=== PATIENT | male | born 1995 | race Caucasian/White ===

== ENCOUNTER 2017-01-15 07:09 | Day surgery (SDC) | payer OTHER ==
[~2017-01-15] VITALS: Ht 177.8 cm; Wt 56.2 kg
[2017-01-15 07:27] VITALS: BP 134/74
[2017-01-15 10:36] VITALS: BP 116/62
== END 2017-01-15 10:20 | disposition home or self-care (01) ==
LOC: GI 07:09 → OR 09:00 → GI 09:30
PROVIDERS: Internal Medicine Gastroenterology
PROC: 0DB68ZX Excision of Stomach, Via Natural or Artificial Opening Endoscopic, Diagnostic (ICD-10-PCS; principal; 2017-01-15 09:30)
PROC: 0DJD8ZZ Inspection of Lower Intestinal Tract, Via Natural or Artificial Opening Endoscopic (ICD-10-PCS; 2017-01-15 09:30)
DX: R10.9 Unspecified abdominal pain (principal); R11.2 Nausea with vomiting, unspecified; R63.4 Abnormal weight loss; F84.0 Autistic disorder
CPT/HCPCS: 43235; 45378; J1200; J1610; J2250; J2310; J3010; J3490

== ENCOUNTER 2018-01-21 08:48 | Emergency (ER) | payer OTHER ==
[~2018-01-21] VITALS: Ht 167.6 cm; Wt 66.3 kg
[2018-01-21 10:11] VITALS: BP 122/78
== END 2018-01-21 11:02 | disposition home or self-care (01) ==
LOC: ED 08:48
DX: M54.41 Lumbago with sciatica, right side (principal); F90.9 Attention-deficit hyperactivity disorder, unspecified type

== ENCOUNTER 2019-03-01 20:13 | Emergency (ER) | payer OTHER ==
[~2019-03-01] VITALS: Ht 167.6 cm; Wt 80.7 kg
[2019-03-01 20:16] VITALS: Ht 167.6 cm; Wt 80.7 kg
[2019-03-01 20:42] LABS: BASOPHIL % 0.9 % (0-2); PLATELET COUNT 169 x10^3mcL (130-400); RED CELL DISTRIBUTION WIDTH 12.7 % (11.5-14.5)
[2019-03-01 20:57] LABS: CALCIUM 9.3 mg/dL (8.5-10.1); CARBON DIOXIDE 27.8 mmol/L (21-32); CHLORIDE SERUM 103 mmol/L (98-107); CREATININE SERUM 1.2 mg/dL (0.7-1.3); GFR1 > 60 mL/min; GLUCOSE SERUM 101 mg/dL (74-106); POTASSIUM SERUM 3.8 mmol/L (3.5-5.1); SODIUM SERUM 140 mmol/L (136-145)
[2019-03-01 21:02] LABS: ALBUMIN 4.1 g/dL (3.4-5.0); ALKALINE PHOSPHATASE 108 U/L (46-116); ALT/SGPT 26 U/L (16-63); AST/SGOT 24 U/L (15-37); BILIRUBIN TOTAL 1.16 mg/dL (0.20-1.00); TOTAL PROTEIN, SERUM 8.2 g/dL (6.4-8.2)
[2019-03-02 00:13] VITALS: BP 123/84
== END 2019-03-02 00:13 | disposition left against medical advice (07) ==
LOC: ED 20:13
DX: R10.33 Periumbilical pain (principal); F90.9 Attention-deficit hyperactivity disorder, unspecified type; M41.9 Scoliosis, unspecified
CPT/HCPCS: 36415; Q0162